=== PATIENT | male | born 1970 | race Caucasian/White ===

== ENCOUNTER 2016-07-02 19:23 | Emergency (ER) | payer OTHER ==
[~2016-07-02] VITALS: Ht 185.4 cm; Wt 122.8 kg
[2016-07-02 19:25] VITALS: TEMP 36.6; Ht 185.4 cm; Wt 122.8 kg
[2016-07-02] MEDS ORDERED: SODIUM CHLORIDE 0.9% 1000ML 250 ML IV STA (20:54)
[2016-07-02] MEDS ORDERED: SODIUM CHLORIDE 0.9% 1000ML 1,000 ML IV STA (20:54)
--- NOTE | 2016-07-02 20:57 | EMERGENCY ROOM VISIT NOTE ---
History Report prepared by Aman: Nahid Cobos Under the Supervision of: Dr. King Rubio M.D. First contact with patient: 20:27 Chief Complaint: FLANK PAIN Stated Complaint: PAIN IN LEFT SIDE History of Present Illness The patient is a 46 year old male who presents to the Emergency Room with complaints of intermittent left sided chest pain starting yesterday. He describes the pain to be radiating to his left arm. He has some pain improvement with holding up his left arm or moving his left arm across his chest. The pain has been lasting for about 20 minutes. He currently denies any pain. He reports some difficulty breathing. He denies any recent trauma, injuries, or travels. He denies diaphoresis, pain with breathing, abdominal pain , urinary symptoms, pain/swelling in lower extremities, rash, or any other complaints. He does not smoke cigarettes. He occasionally drinks alcohol. Source of History: patient Onset: yesterday Position: chest (left) Timing: intermittent Modifying Factors (Relieving): other (some pain improvement with holding up his left arm or moving his left arm across his chest) Associated Symptoms: No abdominal pain, No diaphoresis, No rash, No urinary symptoms Review of Systems See HPI for pertinent positives & negatives. A total of 10 systems reviewed and were otherwise negative. Past Medical & Surgical Medical Problems: (1) Asthma (2) Greenstick fracture (3) Malaria (4) Mononucleosis (5) Ulcer Old medical records were reviewed. Nurse's notes were reviewed and I agree with. Denies history of diabetes or high blood pressure or cardiac disease Family History Diabetes mellitus FH: heart disease FH: lung disease FHx: cancer Hypertension Social History Smoking Status: Never Smoker Marital Status: single Occupation Status: unemployed Current/Historical Medications Scheduled Multiple Vitamins W/ Minerals (Adult Gummy), 1 TAB PO DAILY Allergies Coded Allergies: Penicillins (Verified Allergy, Severe, Elevated temperature, diaphoretic and hallucinations, 07/02/16) Physical Exam Vital Signs Date Time Temp Pulse Resp B/P Pulse Ox O2 Delivery O2 Flow Rate FiO2 07/02/16 22:00 64 108/77 93 07/02/16 21:35 63 07/02/16 21:35 94 Room Air 07/02/16 21:30 103/81 07/02/16 21:27 67 18 113/79 94 Room Air 07/02/16 19:25 36.6 89 18 127/89 94 Room Air Physical Exam General: Non-ill appearing, middle aged male, in no acute distress. HEENT: Normal cephalic atraumatic. Pupils are equal round and reactive to light. Extraocular movements are intact. Oropharynx is pink with moist mucous membranes. No swelling of the mouth lips or tongue. Neck: Supple with a midline trachea. No meningeal signs or stiffness, no JVD or bruits. No Stridor. Chest: Clear to auscultation bilaterally. No wheezes or rhonchi. No increased work of breathing. Heart: regular rate and rhythm. Abdomen: Soft nontender, nondistended without rebound guarding or rigidity. Extremities: No cyanosis clubbing or edema. No calf tenderness or assymetry Spine/Back. Non tender to palpation. No CVA tenderness Skin: Good turgor without rashes. Neurologic exam: Cranial nerves two through 12 are intact. Motor and sensation are intact and symmetrical throughout. Medical Decision & Procedures ER Provider Diagnostic Interpretation: X-ray results as stated below per interpretation by me and the radiologist: CHEST ONE VIEW PORTABLE CLINICAL HISTORY: CHEST PAIN dyspnea COMPARISON STUDY: No previous studies for comparison. FINDINGS: The bones soft tissues and hemidiaphragms are normal. The cardiomediastinal silhouette is normal. The lungs are clear. The pulmonary vasculature is normal. IMPRESSION: Negative chest. Electronically signed by: George Veloz M.D. 07/02/2016 9:09 PM Dictated Date/Time: 07/02/2016 9:09 PM Laboratory Results 07/02/16 21:10 Red Blood Count 5.63, Mean Corpuscular Volume 83.7, Mean Corpuscular Hemoglobin 29.7, Mean Corpuscular Hemoglobin Concent 35.5, Mean Platelet Volume 9.4, Neutrophils (%) (Auto) 62.8, Lymphocytes (%) (Auto) 27.5, Monocytes (%) (Auto) 7.2, Eosinophils (%) (Auto) 2.2, Basophils (%) (Auto) 0.2, Neutrophils # (Auto) 5.20, Lymphocytes # (Auto) 2.28, Monocytes # (Auto) 0.60, Eosinophils # (Auto) 0.18, Basophils # (Auto) 0.02 07/02/16 21:10 Test 07/02/16 21:07/02/16 21:19 White Blood Count 8.29 K/uL (4.8-10.8) Red Blood Count 5.63 M/uL (4.7-6.1) Hemoglobin 16.7 g/dL (14.0-18.0) Hematocrit 47.1 % (42-52) Mean Corpuscular Volume 83.7 fL (80-100) Mean Corpuscular Hemoglobin 29.7 pg (25-34) Mean Corpuscular Hemoglobin Concent 35.5 g/dl (32-36) Platelet Count 207 K/uL (130-400) Mean Platelet Volume 9.4 fL (7.4-10.4) Neutrophils (%) (Auto) 62.8 % Lymphocytes (%) (Auto) 27.5 % Monocytes (%) (Auto) 7.2 % Eosinophils (%) (Auto) 2.2 % Basophils (%) (Auto) 0.2 % Neutrophils # (Auto) 5.20 K/uL (1.4-6.5) Lymphocytes # (Auto) 2.28 K/uL (1.2-3.4) Monocytes # (Auto) 0.60 K/uL (0.11-0.59) Eosinophils # (Auto) 0.18 K/uL (0-0.5) Basophils # (Auto) 0.02 K/uL (0-0.2) RDW Standard Deviation 40.9 fL (36.4-46.3) RDW Coefficient of Variation 13.4 % (11.5-14.5) Immature Granulocyte % (Auto) 0.1 % Immature Granulocyte # (Auto) 0.01 K/uL (0.00-0.02) Prothrombin Time 11.3 SECONDS (9.0-12.0) Prothromb Time International Ratio 1.1 (0.9-1.1) Activated Partial Thromboplast Time 28.9 SECONDS (21.0-31.0) Partial Thromboplastin Ratio 1.1 Anion Gap 7.0 mmol/L (3-11) Est Creatinine Clear Calc Drug Dose 139.2 ml/min Estimated GFR () 116.7 Estimated GFR (Non- 100.7 BUN/Creatinine Ratio 13.3 (10-20) Calcium Level 9.1 mg/dl (8.5-10.1) Total Bilirubin 0.4 mg/dl (0.2-1) Direct Bilirubin < 0.1 mg/dl (0-0.2) Aspartate Amino Transf (AST/SGOT) 26 U/L (15-37) Alanine Aminotransferase (ALT/SGPT) 57 U/L (12-78) Alkaline Phosphatase 109 U/L (45-117) Total Creatine Kinase 147 U/L (39-308) Creatine Kinase MB 0.9 ng/ml (0.5-3.6) Creatine Kinase MB Ratio 0.6 (0-3.0) Total Protein 7.7 gm/dl (6.4-8.2) Albumin 4.0 gm/dl (3.4-5.0) Lipase 140 U/L (73-393) Thyroid Stimulating Hormone (TSH) 3.370 uIu/ml (0.300-4.500) Bedside D-Dimer 127 ng/mlFEU (0-450) Bedside Troponin I 0.000 ng/ml (0-0.045) Laboratory studies as stated above per my review. Medications Administered Medications (Trade) Dose Ordered Sig/Sukhwinder Route Start Time Stop Time Status Last Admin Dose Admin Sodium Chloride 250 ml @ 999 mls/hr Q16M STAT IV 07/02/16 20:54 07/02/16 21:09 DC 07/02/16 21:33 999 MLS/HR Sodium Chloride (Nss 1000ml) 1,000 ml @ 100 mls/hr Q10H STAT IV 07/02/16 20:54 07/02/16 22:33 DC 07/02/16 21:33 100 MLS/HR ECG Indication: chest pain Rate (beats per minute): 67 Rhythm: normal sinus Findings: other (LVH; early repolarization; no definite ischemic changes) Comparison ECG Date: November 24, 2013 Change: no significant change ED Course 2026: Past medical records reviewed. The patient was evaluated in room B02, and a complete history and physical examination were performed. 2053: Sodium Chloride 1000 ml @ 100 mls/hr IV, Sodium Chloride 250 ml @ 999 mls/ hr IV 2220: Upon reevaluation, the patient is feeling better. I discussed the results and treatment plan with him. He verbalized agreement of the treatment plan. The patient was discharged home. Medical Decision Differential diagnosis includes but is not limited to acute coronary disease, arrhythmia, pneumonia, musculoskeletal pain, pneumothorax, electrolyte or metabolic abnormalities, anxiety. This patient comes in as described above. He's had some vague chest symptoms are gone for about a month. They do not occur during exertion and in fact he mowed his lawn and did not have any pain during this . The symptoms have been going on for a month and very atypical for cardiac. He has no shortness breath or associated symptoms. IV access established, EKG, and multiple blood testing was obtained as well as chest x-ray. Chest x-ray does not show congestive heart failure, pneumonia, or pneumothorax. His d-dimer is within normal limits and in a low pretest probability, this makes PE highly unlikely. EKG shows some chronic changes but no acute ischemic changes. He does have some high voltage but this is unchanged. His troponin is 0 his CK-MB is within normal limits. He has no acute electrolyte or metabolic abnormalities. He feels good and would like to go home and recommend that he follow up with his regular doctor for further recheck and evaluation. He is to return if he has recurrence of symptoms, worsening of symptoms, any new problems or concern. S take a baby aspirin a day. He was happy with plan and discharged to home. He should follow-up with his doctor this coming week for recheck or return here over the weekend if symptoms worsen. Impression Primary Impression: Left sided chest pain Scribe Attestation The scribe's documentation has been prepared under my direction and personally reviewed by me in its entirety. I confirm that the note above accurately reflects all work, treatment, procedures, and medical decision making performed by me. Departure Information Dispostion Home / Self-Care Referrals No Doctor, Assigned (PCP) Forms HOME CARE DOCUMENTATION FORM, IMPORTANT VISIT INFORMATION Patient Instructions My [facility] Additional Instructions Rest REturn if:worsening of symptoms, fever, shortness of breath, any new problems or concerns Follow-up with your doctor next week for recheck
--- NOTE | 2016-07-02 21:11 | DIAGNOSTIC IMAGING REPORT ---
CHEST ONE VIEW PORTABLE CLINICAL HISTORY: CHEST PAIN dyspnea COMPARISON STUDY: No previous studies for comparison. FINDINGS: The bones soft tissues and hemidiaphragms are normal. The cardiomediastinal silhouette is normal. The lungs are clear. The pulmonary vasculature is normal. IMPRESSION: Negative chest. Electronically signed by: George Veloz M.D. 07/02/2016 9:09 PM Dictated Date/Time: 07/02/2016 9:09 PM
[2016-07-02 21:35] VITALS: O2SAT 94
[2016-07-02 21:35] LABS: BASO % 0.2 %; BASO ABS # 0.02 K/uL (0-0.2); COMPLETE YES; EOS % 2.2 %; HEMATOCRIT 47.1 % (42-52); IG% 0.1 %; LYMPH % 27.5 %; LYMPH ABS # 2.28 K/uL (1.2-3.4); MEAN CELL VOLUME 83.7 fL (80-100); MEAN CORPUSCULAR HEMOGLOBIN 29.7 pg (25-34); MEAN CORPUSCULAR HGB CONC 35.5 g/dl (32-36); MEAN PLATELET VOLUME 9.4 fL (7.4-10.4); MONO % 7.2 %; NEUT % 62.8 %; PLATELET COUNT 207 K/uL (130-400); RED BLOOD COUNT 5.63 M/uL (4.7-6.1); WHITE BLOOD COUNT 8.29 K/uL (4.8-10.8)
[2016-07-02 21:45] LABS: INR 1.1 (0.9-1.1); PARTIAL THROMBOPLASTIN RATIO 1.1; PROTHROMBIN TIME (PATIENT) 11.3 SECONDS (9.0-12.0)
[2016-07-02] MEDS ORDERED: MULT1CHW4 PO (21:50)
[2016-07-02 21:51] LABS: ALT/SGPT 57 U/L (12-78); BLOOD UREA NITROGEN 12 mg/dl (7-18); BUN/CREATININE RATIO 13.3 (10-20); CARBON DIOXIDE 27 mmol/L (21-32); CHLORIDE 106 mmol/L (98-107); CREATININE 0.91 mg/dl (0.60-1.40); GLUCOSE 92 mg/dl (70-99); POTASSIUM 3.7 mmol/L (3.5-5.1); SODIUM 140 mmol/L (136-145)
[2016-07-02 22:00] VITALS: BP 108/77; PULSE 64; O2SAT 93
[2016-07-02 22:01] LABS: ALKALINE PHOSPHATASE 109 U/L (45-117); AST/SGOT 26 U/L (15-37); CKMB/CK RATIO 0.6 (0-3.0)
[2016-07-02 22:13] LABS: CALCIUM 9.1 mg/dl (8.5-10.1)
== END 2016-07-02 22:25 | disposition home or self-care (01) ==
LOC: C.EDB 19:24
DX: R07.9 Chest pain, unspecified (principal); M79.602 Pain in left arm; J45.909 Unspecified asthma, uncomplicated; Z86.19 Personal history of other infectious and parasitic diseases; Z87.828 Personal history of other (healed) physical injury and trauma; Z82.49 Family history of ischemic heart disease and other diseases of the circulatory system; Z83.3 Family history of diabetes mellitus; Z83.6 Family history of other diseases of the respiratory system